=== PATIENT | male | born 1955 | race Caucasian/White ===

== ENCOUNTER 2016-07-31 23:59 | Emergency (ER) | payer BC ==
--- NOTE | ~2016-07-31 | CR142 ---
[facility]. [facility] A Service of [facility] & [facility] RADIOLOGY TEXT RESULTS PATIENT: ODALIS AMAYA JR LOCATION: SED : 57 UNIT #: [id number] AGE: [address]: Mike Mercado SEX: M ORDER DR: [id number] [address] [address] [id number] E MR#: [id number] Acc #: [id number] NAME: ODALIS AMAYA JR : 1955 SEX: M STUDY DATE/TIME: 07/31/2016 23:41 UNIT: SED ROOM: STUDY DESCRIPTION: CR Hand Min 3 Views Rt Attending Physician: Mike Mercado P.A.-C. Ordering Physician: Mike Mercado P.A.-C. Primary Care Physician: Adriano Guy M.D. MEDICAL IMAGING REPORT This report is preliminary unless electronic signature is present. EXAM Right hand INDICATIONS Right hand pain for a year which is worsening in the last 2 days FINDINGS 3 views of the right hand were obtained. There is degenerative change at the first carpometacarpal joint. No fracture is visible. The other bones are normal. IMPRESSION Degenerative changes at first carpometacarpal joint, otherwise normal. Dictated by... Jesse Looney M.D. THIS IS AN ELECTRONICALLY VERIFIED REPORT Jesse Looney M.D. at 08/01/2016 9:55 PM FEL/to TD: 08/01/2016 17:49 JOB #: [id number] MEDICAL IMAGING REPORT Page 1 of 1
[~2016-07-31 23:59] MED LIST: HCTZ; METFORMIN; VITAMIN D1000 UNI2
== END 2016-08-01 00:26 | disposition home or self-care (01) ==
LOC: SED 23:59
DX: M13.841 Other specified arthritis, right hand (principal); I10 Essential (primary) hypertension; E11.9 Type 2 diabetes mellitus without complications; Z98.890 Other specified postprocedural states
CPT/HCPCS: 29125; 73130; 99283